=== PATIENT | female | born 1950 | race Caucasian/White ===

== ENCOUNTER 2018-04-18 00:52 | Outpatient (CLI) | payer MEDICARE, BC ==
[~2018-04-18 00:52] MED LIST: ATOR10TA87 PO; DULO-31 PO; LEVO112T61 PO; RES15C PO
== END 2018-04-18 23:59 | disposition home or self-care (01) ==
LOC: DIABETIC 00:52
PROVIDERS: ATTEND Specialist
DX: E11.65 Type 2 diabetes mellitus with hyperglycemia (principal); Z88.1 Allergy status to other antibiotic agents; Z90.710 Acquired absence of both cervix and uterus
CPT/HCPCS: G0108

== ENCOUNTER 2022-01-22 12:01 | Emergency (ER) | payer MEDICARE, BC ==
[~2022-01-22] VITALS: Ht 170.2 cm; Wt 63.6 kg
[2022-01-22 12:18] VITALS: BP 118/64
[2022-01-22] MEDS ORDERED: BEBTELOVIMAB 175 MG/2 ML VIAL IV ONE (12:55)
[2022-01-22] MEDS ORDERED: ondansetron/PF 4mg/2ml inj IV ONE (13:55)
== END 2022-01-22 14:52 | disposition home or self-care (01) ==
LOC: ER 12:02
DX: U07.1 COVID-19 (principal); E78.00 Pure hypercholesterolemia, unspecified; K21.9 Gastro-esophageal reflux disease without esophagitis; E07.9 Disorder of thyroid, unspecified; F41.9 Anxiety disorder, unspecified; Z88.2 Allergy status to sulfonamides; Z79.899 Other long term (current) drug therapy
CPT/HCPCS: 87635; 96374; 99284; C9803; J2405; M0222; Q0222

== ENCOUNTER 2024-01-31 08:50 | Outpatient (CLI) | payer MEDICARE, BC ==
[2024-01-31] MEDS ORDERED: iohexol 300mg/ml 100ml inj. ONE (09:53)
[2024-01-31] MEDS ORDERED: IOHEXOL 12MG/ML oral solution 500 ML BOTTLE PO ONE (10:10)
== END 2024-01-31 23:59 | disposition home or self-care (01) ==
LOC: RAD 08:50
PROVIDERS: ATTEND Surgery
DX: K43.2 Incisional hernia without obstruction or gangrene (principal); E23.2 Diabetes insipidus; R10.84 Generalized abdominal pain
CPT/HCPCS: 74177; Q9967

== ENCOUNTER 2024-07-19 11:20 | Emergency (ER) | payer MEDICARE, BC ==
[~2024-07-19] VITALS: Ht 170.2 cm; Wt 63.8 kg
[2024-07-19 13:10] VITALS: BP 118/64; PULSE 78; RESP 15; TEMP 98.7; O2SAT 99
== END 2024-07-19 13:12 | disposition home or self-care (01) ==
LOC: ER 11:21
DX: S00.03XA Contusion of scalp, initial encounter (principal); E78.00 Pure hypercholesterolemia, unspecified; K21.9 Gastro-esophageal reflux disease without esophagitis; M79.7 Fibromyalgia; Z88.8 Allergy status to other drugs, medicaments and biological substances; Z88.2 Allergy status to sulfonamides; Z88.1 Allergy status to other antibiotic agents; Z79.899 Other long term (current) drug therapy; Z85.43 Personal history of malignant neoplasm of ovary; Z86.73 Personal history of transient ischemic attack (TIA), and cerebral infarction without residual deficits; Z90.49 Acquired absence of other specified parts of digestive tract; Z90.710 Acquired absence of both cervix and uterus; W18.30XA Fall on same level, unspecified, initial encounter; Y93.89 Activity, other specified; Y92.89 Other specified places as the place of occurrence of the external cause; Y99.8 Other external cause status
CPT/HCPCS: 70450; 99284

== ENCOUNTER → 2025-03-15 | Emergency (ER) | payer MEDICARE, BC ==
[~2025-03-15] VITALS: Ht 170.2 cm; Wt 65.2 kg
[2025-03-15 13:14] VITALS: BP 127/57; PULSE 82; RESP 16; O2SAT 100
--- NOTE | 2025-03-15 13:33 | ELECTROCARDIOGRAPH REPORT ---
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
[2025-03-15 13:53] LABS: LEUKOCYTE ESTERASE ,URINE NEGATIVE (Neg); NITRITES, URINE NEGATIVE (Neg); OCCULT BLOOD,URINE NEGATIVE (Neg)
[2025-03-15 13:57] LABS: UA COLLECTION TYPE CLN CATCH MIDSTREAM
[2025-03-15 14:13] LABS: MEAN PLATELET VOLUME 9.1 FL (7.4-10.4); RED CELL DISTRIBUTION WIDTH 15.5 % (11.5-14.5)
--- NOTE | 2025-03-15 14:15 | RADIOLOGY REPORT ---
CHEST RADIOGRAPH Indication: CP Technique: DI CHEST,SINGLE VIEW Comparison: None FINDINGS: 1 The cardiac silhouette is unremarkable. The lungs demonstrate no pulmonary airspace consolidation. The pulmonary vasculature is mildly prominent. There is no pleural effusion. There is no pneumothorax. Aortic atherosclerotic disease. Postsurgical changes left upper quadrant of the abdomen. IMPRESSION: Mild pulmonary vascular congestion.
[2025-03-15 14:33] LABS: CREATININE 0.64 MG/DL (0.40-0.90); PRO BRAIN NATRIURETIC PEPTIDE < 30 PG/ML (0-125); TOTAL CARBON DIOXIDE 27.5 MMOL/L (24-32); eCRCL 75 ML/MIN; eGFR > 90 ML/MIN
--- NOTE | 2025-03-15 15:23 | Physician Documentation ---
History of Present Illness ~ Chief Complaint: Blood in Urine Stated Complaint: BLOOD IN URINE/FALL T-2 DAYS Time Seen by MD: 14:25 Primary Medical Doctor: FABIANA LOPEZ 75-year-old female who presents to the emergency department for evaluation which she feels to be hematuria. Reports she had a mechanical fall due to dizziness and when she landed on her left hip flank area. Reports that she often has dizziness due to symptomatic anemia at times. He has most recently seen her primary care physician just one week ago and had normal laboratory findings. She is on iron daily. There was no loss of consciousness. She reports chronic abdominal discomfort due to multiple surgeries associated with adhesions. Additionally patient had an outpatient ultrasound by her primary care physician prior to the fall of the abdomen which was without acute findings. Today in the emergency department with primary concern is that of the blood that has a period in the toilet. She does report bowel moist at the time she voided. She has had a total hysterectomy in the past due to uterine cancer however she has been cancer free for over greater than 20 years. No other additional symptoms. No head strike. Patient reports avoiding in the emergency department without any noted blood. She denies prior history of hemorrhoids. Does report having a colonoscopy in September that which was normal. Medication Reconciliation Allergies: Coded Allergies: metronidazole (Verified Allergy, Severe, 07/19/24) Patient states sudden vancomycin (Unverified Allergy, Severe, 07/19/24) Patient states sudden Sulfa (Sulfonamide Antibiotics) (Verified Allergy, Unknown, 02/07/18) Uncoded Allergies: SULFA (Allergy, Unknown, 02/07/18) Scheduled Atorvastatin Calcium* (Lipitor*), 10 MG PO HS Duloxetine Hcl* (Cymbalta*), 60 MG PO DAILY, (Reported) Levothyroxine Sodium* (Synthroid*), 112 MCG PO DAILY, (Reported) Scheduled PRN Temazepam* (Restoril*), 15 MG PO HS PRN, (Reported) Past Medical History Past Medical History: CVA/TIA/Stroke, High Cholesterol, GERD, Thyroid (unspecified), Fibromyalgia, Ovarian Cancer, Anxiety Past Surgical History: abdominal surgery, appendectomy, cancer surgery, hysterectomy Alcohol Use: None Drug Use: none Lives with: Spouse Lives In: Home Review of Systems All Other Systems at this time: Reviewed and Negative Constitutional Acute on chronic episodes of dizziness without complete syncope Eyes: Reports: no symptoms reported ENT: Reports: no symptoms reported Respiratory: Reports: no symptoms reported Cardiovascular: Reports: no symptoms reported Gastrointestinal: Reports: abdominal pain Genitourinary: Reports: hematuria; Denies: frequency, flank pain Neurological: Reports: no symptoms reported Musculoskeletal: Reports: no symptoms reported Integumentary: Reports: no symptoms reported Allergic/Immunologic: Reports: no symptoms reported Hematologic/Lymphatic: Reports: anemia Endocrine: Reports: no symptoms reported Psychiatric: Reports: no symptoms reported Physical Exam Vital Signs: Temperature: 97.6, Source: Temporal, Heart Rate: 82, Respiratory Rate: 16, BP: 127/57, Pulse Oximetry: 100, Weight: 65.200 Oxygen Flow Rate: 0 General Appearance: alert, other (Anxious) EENT: PERRL/EOMI Neck: normal inspection Chest: no accessory muscle use Cardiovascular: normal peripheral pulses, regular rate, rhythm Gastrointestinal: normal palpation Back: normal inspection, no CVA tenderness, no vertebral tenderness, vertebral tenderness Rectal: deferred Extremities: normal range of motion Neurologic: oriented x4 Psychiatric: normal mood/affect Skin: normal color, warm/dry; No: rash Progress Results/Orders Results/Orders Vital Signs 03/15/25 03/15/25 13:14 15:50 Temp 97.6 97.6 Pulse 82 Resp 16 B/P (MAP) 127/57 Pulse Ox 100 O2 Flow Rate 0 Laboratory Tests Test 03/15/25 13:38 03/15/25 14:03 Urine Specimen Description Cln catch midstream Urine Color Yellow Urine Clarity Clear Urine pH 7.0 Urine Specific [place] <=1.005 Urine Protein Negative Urine Glucose (UA) Negative Urine Ketones Negative Urine Occult Blood Negative Urine Nitrite Negative Urine Bilirubin Negative Urine Urobilinogen 0.2 Urine Leukocyte Esterase Negative Urine Culture Indicated Not ind Volume Urine Centrifuged 10 ml Urine Comment White Blood Count 4.7 Red Blood Count 4.74 Hemoglobin 12.7 Hematocrit 38.3 Mean Corpuscular Volume 80.7 Mean Corpuscular Hemoglobin 26.7 L Mean Corpuscular Hemoglobin Concent 33.1 Red Cell Distribution Width 15.5 H Platelet Count 221 Mean Platelet Volume 9.1 Neutrophils (%) (Auto) 63.1 Lymphocytes (%) (Auto) 27.0 Monocytes (%) (Auto) 7.4 Eosinophils (%) (Auto) 1.4 Basophils (%) (Auto) 1.1 H Neutrophils # (Auto) 3.0 Lymphocytes # (Auto) 1.3 Monocytes # (Auto) 0.3 Eosinophils # (Auto) 0.1 Basophils # (Auto) 0.0 CBC Comment Sodium Level 138 Potassium Level 4.2 Chloride Level 104 Carbon Dioxide Level 27.5 Anion Gap 7 L Blood Urea Nitrogen 18 Creatinine 0.64 Estimated GFR/1.73 m2 > 90 BUN/Creatinine Ratio 28.1 H Glucose Level 146 H Calcium Level 9.6 Troponin I High Sensitivity 21 Pro-B-Type Natriuretic Peptide < 30 Albumin 3.7 Chemistry Comments Medical Decision Making Additional Comment 75-year-old female who presents to the emergency department for evaluation she believes to the hematuria that she feels may or may not be associated with recent fall. Examination is unremarkable for hematomas, seromas, contusions. Today's labs were obtained and are all reassuring. Her H&H is without change from her one week ago. He has no renal insufficiency and the remaining labs are unremarkable. No clinical evidence of urinary tract infection, no microscopic or microscopic blood noted in urine and no renal insufficiency. Chest x-ray imaging is reassuring and troponin also reassuring. No clinical suspicion for cardiac involvement. Many differentials considered to including vaginal injury, renal lithiasis, vaginal lacerations, hemorrhoids, anal fissures post procedural bleeding, interstitial cystitis tumor mass. 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 Patient's safely discharged from the emergency department with all questions answered. Departure Disposition: HOME / SELF CARE / HOMELESS Impression: Primary Impression: Flank pain Additional Impressions: Hematuria Qualified Codes: R31.9 - Hematuria, unspecified Anemia Qualified Codes: D64.9 - Anemia, unspecified Condition: Stable Discharge Instructions: Hematuria, Adult Additional Instructions: Please make follow up appointment with your primary care physician tomorrow for consideration of advanced imaging such as Cystoscopy, CT imaging or Urology follow up. Your labs reviewed today all reassuring. Thank you for visiting the emergency department of [facility]. Referrals: NO PRIMARY CARE PROVIDER (PCP) Education Educated: Patient Educated regarding: diagnosis, treatment Signature Scribe Signature: . Attestation: . [facility] Mar 15, 2025 15:23
[2025-03-15 15:50] VITALS: TEMP 97.6
== END | disposition home or self-care (01) ==
LOC: ER 12:57
DX: R31.9 Hematuria, unspecified (principal); D64.9 Anemia, unspecified; R10.9 Unspecified abdominal pain; E78.00 Pure hypercholesterolemia, unspecified; M79.7 Fibromyalgia; F41.9 Anxiety disorder, unspecified; K21.9 Gastro-esophageal reflux disease without esophagitis; Z85.42 Personal history of malignant neoplasm of other parts of uterus; Z85.43 Personal history of malignant neoplasm of ovary; Z88.1 Allergy status to other antibiotic agents; Z86.73 Personal history of transient ischemic attack (TIA), and cerebral infarction without residual deficits; Z88.2 Allergy status to sulfonamides; Z90.49 Acquired absence of other specified parts of digestive tract; Z90.710 Acquired absence of both cervix and uterus; Z79.899 Other long term (current) drug therapy
CPT/HCPCS: 36415; 71045; 80048; 81003; 83880; 84484; 85025; 93005; 99285